=== PATIENT | female | born 1950 | race Caucasian/White ===

== ENCOUNTER → 2016-09-07 | Outpatient (CLI) | payer MEDICARE, OTHER ==
--- NOTE | 2016-09-07 10:08 | REPMRS ---
Patient History The patient states she had a clinical breast exam in 2015. Patient is postmenopausal and has history of other cancer at age 56. Family history of unknown cancer in father at age 88. Benign excisional biopsy of the right breast, 1994. Took hormonal contraceptives for 3 years. Digital Mammo Screening Bilat: September 07, 2016 - Exam #: [id number] Bilateral CC and MLO view(s) were taken. Technologist: Anne Benavidez, Technologist Prior study comparison: July 29, 2015, bilateral digital mammo screening bilat performed at [facility]. July 24, 2014, bilateral bilat screen digital mammo, performed at [facility] ([facility] FINDINGS: There are scattered fibroglandular densities. There has been no change in the appearance of the mammogram from the prior studies. There is a mild amount of residual fibroglandular tissue which is fairly symmetric. There is no interval development of dominant mass, architectural distortion, or clustered microcalcification suggestive of malignancy. ASSESSMENT: BI-RADS/ACR category 1 mammogram. Negative. Recommendation Routine screening mammogram in 1 year (for women over age 40). This mammogram was interpreted with the aid of an FDA-approved computer-aided dectection system. Electronically Signed By: Redd Perez MD 09/07/16 [id number]
== END | disposition home or self-care (01) ==
LOC: M RAD 09:30
PROVIDERS: ATTEND Nurse Practitioner Family
DX: Z12.31 Encounter for screening mammogram for malignant neoplasm of breast (principal); Z78.0 Asymptomatic menopausal state; Z92.0 Personal history of contraception; Z80.9 Family history of malignant neoplasm, unspecified; Z85.9 Personal history of malignant neoplasm, unspecified

== ENCOUNTER → 2016-12-23 | Outpatient (CLI) | payer MEDICARE, OTHER ==
[~2016-12-23] VITALS: Ht 160 cm; Wt 56.7 kg
[~2016-12-23] MED LIST: ADVI200C5 PO; GLYCOPYRROLATE INJ 0.2 MG/ML 2 ML VIAL As Ordered ONE; MULT1TAB10 PO; NS 1,000 ML IV ONE; OMEP40CA2 PO; PROPOFOL 200 MG/20 ML VIAL As Ordered ONE; VITA100037 PO; VITATAB11 PO; tumeric PO
--- NOTE | 2016-12-23 11:12 | ROOR ---
Patient Name: Nani Bello Procedure Date: 12/23/2016 10:51 AM Date of : 1950 Age: 66 Room: [facility] Gender: Female Note Status: Finalized Procedure: Colonoscopy Indications: Screening for colorectal malignant neoplasm Providers: Oscar AVILA MD Referring MD: JACK ESCOBAR NP Requesting Provider: Medicines: Monitored Anesthesia Care Complications: No immediate complications. Procedure: Pre-Anesthesia Assessment: - The heart rate, respiratory rate, oxygen saturations, blood pressure, adequacy of pulmonary ventilation, and response to care were monitored throughout the procedure. The Colonoscope was introduced through the anus and advanced to the cecum, identified by appendiceal orifice and ileocecal valve. The colonoscopy was performed without difficulty. The patient tolerated the procedure well. The quality of the bowel preparation was good. Findings: The perianal and digital rectal examinations were normal. A 6 mm polyp was found in the ascending colon. The polyp was sessile. The polyp was removed with a cold snare. Resection and retrieval were complete. A 4 mm polyp was found in the sigmoid colon. The polyp was sessile. The polyp was removed with a cold snare. Resection and retrieval were complete. Small Internal Hemorrhoids. The exam was otherwise without abnormality on direct and retroflexion views. Impression: - One 6 mm polyp in the ascending colon, removed with a cold snare. Resected and retrieved. - One 4 mm polyp in the sigmoid colon, removed with a cold snare. Resected and retrieved. - Small Internal Hemorrhoids. - The examination was otherwise normal on direct and retroflexion views. Recommendation: - Repeat colonoscopy in 3 years for surveillance. Oscar Avila MD Oscar AVILA MD 12/23/2016 11:12:13 AM This report has been signed electronically. Number of Addenda: 0 Note Initiated On: 12/23/2016 10:51 AM Estimated Blood Loss: Estimated blood loss: none.
[2016-12-23 11:35] VITALS: BP 124/75
== END | disposition home or self-care (01) ==
LOC: M OPP 09:48
PROVIDERS: ATTEND Internal Medicine Gastroenterology
DX: Z12.11 Encounter for screening for malignant neoplasm of colon (principal); D12.2 Benign neoplasm of ascending colon; D12.5 Benign neoplasm of sigmoid colon; K64.8 Other hemorrhoids; I34.1 Nonrheumatic mitral (valve) prolapse; R12 Heartburn; M19.90 Unspecified osteoarthritis, unspecified site; M54.9 Dorsalgia, unspecified; R42 Dizziness and giddiness; Z92.3 Personal history of irradiation; Z85.820 Personal history of malignant melanoma of skin; Z79.899 Other long term (current) drug therapy; Z80.52 Family history of malignant neoplasm of bladder

== ENCOUNTER → 2017-09-30 | Outpatient (REF) | payer MEDICARE, OTHER ==
[2017-10-03 12:54] LABS: LIPASE 116 U/L (73-393)
[2017-10-03 12:54] LABS: AMYLASE 57 U/L (25-115)
== END ==
LOC: M LAB REF 10-03 11:58
DX: R10.12 Left upper quadrant pain (principal)
CPT/HCPCS: 82150

== ENCOUNTER → 2020-02-11 | Outpatient (CLI) | payer MEDICARE, OTHER ==
[~2020-02-11] MED LIST changes: +CALCTAB38 PO; +CREO3600 PO; +CVS10CAP7 PO; +D 1010004 PO; +DSS100CA PO; +GASTROGRAFIN SOLUTION 30ML (Q9963) As Ordered ONE; -GLYCOPYRROLATE INJ 0.2 MG/ML 2 ML VIAL As Ordered ONE; +IBUP200C25 PO; +ISOVUE-370 76% 100ML VIAL As Ordered ONE; +MULTCAP PO; -NS 1,000 ML IV ONE; -OMEP40CA2 PO; +OMEP40CA97 PO; +PANT40TA29 PO; -PROPOFOL 200 MG/20 ML VIAL As Ordered ONE; +RA B1TAB7 PO; +TRAZ1TAB10 PO; -VITA100037 PO; +VITA100067 PO; +VITA200012 PO
--- NOTE | 2020-02-11 14:03 | REP ---
Clinical: Abdominal pain. Technique: Axial contrast enhanced images from the lung bases to the pubic symphysis using oral (per protocol) and 100 ml Isovue 370 intravenous contrast material with coronal and sagittal re-formations. Delayed images of the abdomen obtained. Findings: Liver, gallbladder, residual pancreatic head/uncinate process, bilateral adrenal glands and kidneys appear normal. The enteric system is without obstruction or obvious acute inflammatory process. Moderate fecal stasis throughout the colon is appreciated and should be correlated clinically. Pelvis demonstrates normal bladder and evidence of prior hysterectomy. No ascites. No free air. No definite adenopathy. Abdominal aorta without aneurysm or dissection. Musculoskeletal structures appear intact and without acute osseous abnormality. Chronic L5 spondylolysis without spondylolisthesis noted. There is a 13 mm spiculated lesion and 7 mm nodule at the right lung base. Impression: 1. Moderate fecal stasis. 2. 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 3. Two lesions at the right lung base suspicious for possible metastatic disease. Electronically Signed by Carlos Cuellar MD 02/11/2020 01:55 P
--- NOTE | 2020-02-11 14:09 | REP ---
Clinical: Pain. Technique: Axial contrast enhanced images from the thoracic inlet to the upper abdomen (followed by CT of the abdomen and pelvis) with coronal and sagittal re-formations using 100 ml Isovue 370 intravenous contrast material. [place]: None. Findings: Multiple rounded mass lesions with spiculated margins are identified bilaterally measuring up to 10 mm in the left upper lobe and 13 mm in the right lower lobe which are most suspicious for metastatic disease. No consolidation. No effusion. No pneumothorax. Tracheobronchial tree is patent. No obvious adenopathy. Mediastinum demonstrates normal thoracic aorta, pulmonary vasculature, and heart/pericardium. Surrounding musculoskeletal structures are intact. [id number] identified with tip in the SVC. Impression: Scattered pulmonary lesions compatible with metastatic disease. No prior examination available for comparison. Electronically Signed by Carlos Cuellar MD 02/11/2020 02:01 P
== END ==
LOC: M RAD 11:11
PROVIDERS: ATTEND Internal Medicine Medical Oncology
DX: C25.9 Malignant neoplasm of pancreas, unspecified (principal)
CPT/HCPCS: 71260; 74177; J1642; Q9963; Q9967

== ENCOUNTER → 2021-03-26 | Outpatient (REF) | payer MEDICARE, OTHER ==
[~2021-03-26] MED LIST changes: +ACET-897 PO; +DEXA1TA PO; +ELIQ5TAB PO; +ENOX40IN3 SQ; -GASTROGRAFIN SOLUTION 30ML (Q9963) As Ordered ONE; -ISOVUE-370 76% 100ML VIAL As Ordered ONE; +LOMO2.5T PO; +MIRT-60 PO; +MORP15TA2 PO; +MORP1TAB21 PO; +OMEP40CA4 PO; -OMEP40CA97 PO; +TRAZ-186 PO
[2021-03-26 17:16] LABS: BASO % 0.5 % (0.0-1.0); EOS # 0.1 10^3/uL (0.0-0.5); HEMATOCRIT 32.3 % (36.0-47.0); HEMOGLOBIN 10.5 g/dl (12.0-15.5); LYMPH # 1.2 10^3/uL (1.5-5.0); LYMPH % 19.3 % (24.0-44.0); MEAN CORPUSCULAR HGB CONC 32.5 g/dl (32.0-36.5); MEAN CORPUSCULAR VOLUME 104.5 fl (80.0-96.0); MONO # 0.5 10^3/uL (0.0-0.8); MONO % 8.4 % (2.0-8.0); NEUTROPHILS # 4.3 10^3/uL (1.5-8.5); NEUTROPHILS % 70.3 % (36.0-66.0); PLATELET COUNT, AUTOMATED 273 10^3/uL (150-450); RED BLOOD COUNT 3.09 10^6/uL (4.00-5.40); WHITE BLOOD COUNT 6.1 10^3/uL (4.0-10.0)
[2021-03-26 17:17] LABS: ALBUMIN 3.1 GM/DL (3.2-5.2); ALT/SGPT 23 U/L (12-78); BILIRUBIN,TOTAL 0.3 MG/DL (0.2-1.0); BLOOD UREA NITROGEN 16 MG/DL (7-18); CALCIUM LEVEL 8.7 MG/DL (8.8-10.2); CARBON DIOXIDE LEVEL 26 MEQ/L (21-32); CHLORIDE LEVEL 106 MEQ/L (98-107); GLOMERULAR FILTRATION RATE > 60.0 (>45); GLUCOSE, FASTING 160 MG/DL (70-100); HEMOGLOBIN A1c 5.9 %; POTASSIUM SERUM 3.8 MEQ/L (3.5-5.1); SODIUM LEVEL 136 MEQ/L (136-145); TOTAL PROTEIN 7.2 GM/DL (6.4-8.2)
== END ==
LOC: M LAB REF 16:20
PROVIDERS: ATTEND Physician Assistant Medical
DX: D64.9 Anemia, unspecified (principal); C25.3 Malignant neoplasm of pancreatic duct

== ENCOUNTER 2021-04-13 17:18 | Inpatient (IN) | payer MEDICARE, OTHER ==
[~2021-04-13] VITALS: Ht 162.6 cm; Wt 41.3 kg
[~2021-04-13 17:18] MED LIST changes: -ACET-897 PO; -DEXA1TA PO; -ELIQ5TAB PO; -ENOX40IN3 SQ; -LOMO2.5T PO; -MIRT-60 PO; -MORP15TA2 PO; -MORP1TAB21 PO; -TRAZ-186 PO
[2021-04-13] MEDS ORDERED: MORPHINE 4 MG/ML 1ML VIAL/SYRINGE (J2270) IV ONE (22:10)
[2021-04-13] MEDS ORDERED: NS 1,000 ML IV ONE (22:10)
[2021-04-13 22:42] LABS: BASO % 0.4 % (0.0-1.0); EOS % 0.1 % (0.0-3.0); HEMATOCRIT 32.2 % (36.0-47.0); HEMOGLOBIN 10.5 g/dl (12.0-15.5); LYMPH # 1.4 10^3/uL (1.5-5.0); LYMPH % 20.3 % (24.0-44.0); MEAN CORPUSCULAR HEMOGLOBIN 33.7 pg (27.0-33.0); MEAN CORPUSCULAR HGB CONC 32.6 g/dl (32.0-36.5); MEAN CORPUSCULAR VOLUME 103.2 fl (80.0-96.0); MONO # 0.6 10^3/uL (0.0-0.8); MONO % 8.7 % (2.0-8.0); NEUTROPHILS # 4.7 10^3/uL (1.5-8.5); NEUTROPHILS % 70.4 % (36.0-66.0); PLATELET COUNT, AUTOMATED 226 10^3/uL (150-450); RED BLOOD COUNT 3.12 10^6/uL (4.00-5.40); WHITE BLOOD COUNT 6.7 10^3/uL (4.0-10.0)
[2021-04-13 22:53] LABS: INR 1.05; PARTIAL THROMBOPLASTIN TIME 27.8 SECONDS (25.9-37.0); PROTHROMBIN TIME 14.1 SECONDS (12.7-14.5)
[2021-04-13 23:18] LABS: ALBUMIN 3.2 GM/DL (3.2-5.2); ALT/SGPT 17 U/L (12-78); BILIRUBIN,DIRECT 0.1 MG/DL (0.0-0.2); BILIRUBIN,TOTAL 0.3 MG/DL (0.2-1.0); BLOOD UREA NITROGEN 19 MG/DL (7-18); CALCIUM LEVEL 8.8 MG/DL (8.8-10.2); CARBON DIOXIDE LEVEL 27 MEQ/L (21-32); CHLORIDE LEVEL 106 MEQ/L (98-107); CK-MB VALUE MASS < 1.0 NG/ML (<3.6); CPK CREATINE PHOSPHOKINASE 58 U/L (26-192); CREATININE FOR GFR 0.87 MG/DL (0.55-1.30); GLOMERULAR FILTRATION RATE > 60.0 (>39); GLUCOSE, FASTING 116 MG/DL (70-100); MB/CK RELATIVE INDEX 1.72 (< OR =4); NT-PRO BNP 121 PG/ML (<125); POTASSIUM SERUM 3.9 MEQ/L (3.5-5.1); SODIUM LEVEL 139 MEQ/L (136-145); TROPONIN I < 0.02 NG/ML (< 0.10)
[2021-04-13] MEDS ORDERED: ISOVUE-370 76% 100ML VIAL As Ordered ONE (23:20)
[2021-04-13] MEDS ORDERED: CREON-12 CAPSULE PO ONE (23:43)
[2021-04-13] MEDS ORDERED: CREON-24 CAPSULE PO ONE (23:43)
[2021-04-14] VITALS (10 sets, daily range): BP systolic 105–148; BP diastolic 56–74
[2021-04-14] MEDS ORDERED: HYDROMORPHONE HCL 0.5 MG/ 0.5 ML SYRINGE (J1170 PER 1) IV PRN (00:35)
[2021-04-14 00:43] LABS: RSV AMPLIFICATION NEGATIVE (NEGATIVE)
--- NOTE | 2021-04-14 00:47 | REPVR ---
PROCEDURE INFORMATION: Exam: CTA Chest With Contrast Exam date and time: 04/13/2021 10:07 PM Age: 71 years old Clinical indication: Pain; Shortness of breath; Other: General; Additional info: Extensive dvt/sob TECHNIQUE: Imaging protocol: Computed tomographic angiography of the chest with contrast. 3D rendering (Not supervised by radiologist): MIP and/or 3D reconstructed images were created by the technologist. Radiation optimization: All CT scans at this facility use at least one of these dose optimization techniques: automated exposure control; mA and/or kV adjustment per patient size (includes targeted exams where dose is matched to clinical indication); or iterative reconstruction. Contrast material: ISO; Contrast volume: 75 ml; Contrast route: INTRAVENOUS (IV); COMPARISON: CT Chest with contrast 02/11/2020 1:30 PM. Prior report has not been made available for review at the time of this emergent interpretation, however was requested. FINDINGS: PULMONARY ARTERIES: Diameter of the main pulmonary trunk at 2.4 cm is within normal range. There are intraluminal pulmonary arterial filling defects within right upper lobe segmental and subsegmental pulmonary arterial branches, right middle lobe segmental and subsegmental pulmonary arterial branches, right lower lobe segmental and subsegmental pulmonary arterial branches, posterior lingular segmental and subsegmental branches and involvement of the posteromedial segmental and subsegmental branches of the left lower lobe. These findings are consistent with acute pulmonary emboli. There is non visualization of the right lower lobe superior segmental pulmonary arterial from its origin which may be secondary to postsurgical change, pulmonary embolus or extrinsic compression related to malignancy/mass. HEART AND AORTA: Cardiac size is not enlarged. No tricuspid regurgitation into the IVC is seen. Ventricular ratios are maintained. No deviation of the interventricular septum is seen. Evaluation of the aortic root and ascending thoracic aorta is slightly compromised by cardiac motion artifact. No thoracic aortic aneurysm or dissection is seen otherwise. Visualized proximal great vessels within the superior mediastinum are preserved. No visualized upper abdominoaortic aneurysm or dissection is seen. There is retroperitoneal para-aortic soft tissue mass which results in slight luminal irregularity and narrowing of the visualized celiac axis, superior mesenteric artery and visualized left renal artery. MEDIASTINUM: No mediastinal soft tissue gas. No midline shift of structures seen. The visualized trachea is homogeneous. No mediastinal hematoma. Small amount of fluid noted within the pericardial recesses. There is a paratracheal lymph node measuring 6.1 mm in short axis. This is larger than on the prior study but not obviously pathologic. There is an AP window lymph node measuring 10 mm in short axis. This is newly enlarged compared to the prior exam. There is a 10 mm short axis azygoesophageal recess lymph node which is new compared to the prior exam. There is mild right hilar lymphadenopathy with nodes up to 12 mm in short axis. This is new compared to the prior exam. Malignancy cannot be excluded. No hiatal hernia. Mild esophageal wall thickening cannot be excluded on this study. Clinical correlation with any esophageal symptoms. LUNGS: There are innumerable pulmonary emboli seen throughout the lungs bilaterally much worse than on the prior study. Pulmonary nodules appear to have spiculated margins; the largest nodular opacity measuring 2.7 cm in diameter within the right lower lobe and there is also a focal masslike opacity measuring 3.7 x 3 cm within the right lower lobe. A calcific suture line is visible within the right lung. Correlation with past medical history and surgical history is advised. No pneumothorax. Small pleural effusions bilaterally, left slightly greater than right. Bilateral mild interstitial thickening noted. Lymphatic congestion and lymphatic malignancy are possibilities. UPPER ABDOMEN: No free intraperitoneal air is seen within the upper most abdomen. There is scattered free fluid noted. There is elevated mesenteric and omental attenuation which may be secondary to edema, inflammation and or lymph nodes. There is retroperitoneal lobular soft tissue mass measuring 6.4 cm in diameter around the aorta and proximal visceral branches as discussed above. Vascular involvement cannot be excluded. There is hypoenhancement of the visualized left kidney, compared to the right. The significance of this is uncertain. This may be secondary to slight compromise of the left renal artery, other causes of ischemia or dysfunction, however incompletely assessed. Visualized bowel loops within the upper abdomen appear thick walled, slightly indistinct and with suboptimal enhancement. This could be artifactual secondary to lack of distention and early arterial phase of imaging, however gastroenteritis or early ischemic bowel cannot be excluded. Clinical correlation is advised. MSK AND BODY WALL: Right chest wall chest port is noted, the tip of the catheter at the level of the distal SVC. Degenerative changes of the spine and bony thorax are noted. IMPRESSION: There are pulmonary emboli involving some segmental and subsegmental branches of all pulmonary lobes bilaterally. No imaging evidence of right heart strain is seen at the current time. There are innumerable pulmonary nodules and pulmonary parenchymal masses which are greater and enlarged compared to the prior study, worrisome for worsening metastatic disease. Lymphangitic involvement may also be a possibility. There is new mediastinal and hilar lymph node enlargement, likely secondary to malignant involvement. Incompletely imaged para-aortic retroperitoneal mass is much larger than on the prior study with surrounding of some visceral branches with irregularity of luminal flow suggesting early vascular involvement and or partial vascular compromise. There is hypoenhancement of the left kidney which may be secondary to vascular compromise as discussed above. There is suboptimal enhancement of visualized bowel loops which could be artifactual but early ischemic change cannot be excluded. Other findings discussed above in detail. THIS REPORT CONTAINS FINDINGS THAT MAY BE CRITICAL TO PATIENT CARE. The findings were verbally communicated via telephone conference with TAY CARRASQUILLO at 12:41 AM EDT on 04/14/2021. The findings were acknowledged and understood. Electronically signed by: Zeus Estes On 04/14/2021 00:47:01 AM
[2021-04-14] MEDS ORDERED: HEPARIN SOD (PORCINE) 5000UNITS/ML 1ML VIAL/SYRINGE IV ONE (01:45)
[2021-04-14] MEDS ORDERED: HEPARIN DRIP 25,000 UNITS in IV 1 EA IV SCH (01:45)
[2021-04-14] MEDS ORDERED: HYDROmorphone HCL 2 MG/ML 1ML VIAL IV PRN ×2 (01:45)
[2021-04-14] MEDS ORDERED: HEPARIN SOD (PORCINE) 5000UNITS/ML 1ML VIAL/SYRINGE IV PRN (01:45)
--- NOTE | 2021-04-14 01:48 | HPEPDOC ---
[facility] Medical History & Physical Date of Admission Apr 14, 2021 Date of Service: Apr 14, 2021 Attending Physician: BRENDAN GARCES MD History and Physical CHIEF COMPLAINT: [lower extremity swelling] HISTORY OF PRESENT ILLNESS: [This is a 71 y/o female with a pmh of pancreatic cancer with metastasis to lung and local and distant lymph nodes s/p several rounds of chemo and radiation as well as partial pancreatectomy who presents to our ED on 04/13 with cc of rle swelling that began about 1 week ago. Patient states that when she first noticed the swelling, she did not think that much of it as it did not really bother her. Patient states that she simply watched it, however on tuesday 04/10 she noticed it start to become markedly worse. Patient states that she presented to her pcp on 04/13 for evaluation of the swelling, who then ordered an ultrasound which found a large dvt. Patient states that she was surprised as she has no pain in her leg, rather it is simply swollen. Patient states that she has been traveling lately between [facility] and [place] lately and states that she will often spend many days resting d/t her extreme pain 2/2 her cancer. Patient states that she is currently in extreme pain, but it is in her back and abdomen, and that this is chronic for her. Patient admits to occasional sob. Patient states, at the time of my exam, that otherwise she feels fine and denies chest pain, cough, hemoptysis, n/v/d/c, fevers, chills, syncope, paresthesias. Patient found to have large right leg dvt as well as multiple small pulmonary embolisms without evidence of heart strain.] PAST MEDICAL HISTORY: 1. [See HPI PAST SURGICAL HISTORY: 1. [Partial pancreatectomy SOCIAL HISTORY: Tobacco use:[Denies] ETOH: [Denies] Illicit drug use: [Denies] FAMILY HISTORY: Reviewed - none pertinent ALLERGIES: Please see below. REVIEW OF SYSTEMS: CONSTITUTIONAL: [Denies fevers, chills]. HEENT: [Denies uri sx]. CARDIOVASCULAR: [Denies chest pain, palpitations]. RESPIRATORY: [Admits to occasional episodes of sob. Denies cough, wheezing]. GASTROINTESTINAL: [Admits to chronic abd pain. Denies n/v]. GENITOURINARY: [Denies dysuria]. SKIN: [Denies rash]. MUSCULOSKELETAL: [Admits to chronic back pain. Denies acute joint pain]. NEUROLOGICAL: [Denies syncope, paresthesias]. ENDOCRINE: [Hx of pancreatic insufficiency]. HEMATOLOGIC/LYMPHATIC: [Current dvt + pe]. HOME MEDICATIONS: Please see below. PHYSICAL EXAMINATION: VITAL SIGNS: Please see below. GENERAL APPEARANCE: [This is an underweight 71 y/o female who is pleasant and alert and oriented to all questioning. She is obviously uncomfortable and frequently shifting in bed but in no respiratory distress]. HEENT: [No mass or lesion. EOMI. No scleral icterus. Nares patent. Oral mucosa moist]. CARDIOVASCULAR: [Tachy rate, regular rhythm. No murmurs, rubs, gallops]. LUNGS: [Good air flow b/l. No wheezing, rales, rhonchi]. ABDOMEN: [Soft, tender throughout]. MUSCULOSKELETAL: [No joint deformity noted]. EXTREMITIES: [Right lower extremity grossly edematous however nontender. Right leg is about twice the size of the left. Pulses in the right leg are unobtainable by myself, however patient retains feeling in the foot and has no signs of limb ischemia. No overlying skin changes]. NEUROLOGICAL: [Speech clear. A+Ox3. Patient moves all fours freely during exam. No focal deficits]. PSYCHIATRIC: [Mood and affect appear appropriate]. LABORATORY DATA: See below. IMAGING: [CTA Chest: FINDINGS: PULMONARY ARTERIES: Diameter of the main pulmonary trunk at 2.4 cm is within normal range. There are intraluminal pulmonary arterial filling defects within right upper lobe segmental and subsegmental pulmonary arterial branches, right middle lobe segmental and subsegmental pulmonary arterial branches, right lower lobe segmental and subsegmental pulmonary arterial branches, posterior lingular segmental and subsegmental branches and involvement of the posteromedial segmental and subsegmental branches of the left lower lobe. These findings are consistent with acute pulmonary emboli. There is non visualization of the right lower lobe superior segmental pulmonary arterial from its origin which may be secondary to postsurgical change, pulmonary embolus or extrinsic compression related to malignancy/mass. HEART AND AORTA: Cardiac size is not enlarged. No tricuspid regurgitation into the IVC is seen. Ventricular ratios are maintained. No deviation of the interventricular septum is seen. Evaluation of the aortic root and ascending thoracic aorta is slightly compromised by cardiac motion artifact. No thoracic aortic aneurysm or dissection is seen otherwise. Visualized proximal great vessels within the superior mediastinum are preserved. No visualized upper abdominoaortic aneurysm or dissection is seen. There is retroperitoneal para-aortic soft tissue mass which results in slight luminal irregularity and narrowing of the visualized celiac axis, superior mesenteric artery and visualized left renal artery. MEDIASTINUM: No mediastinal soft tissue gas. No midline shift of structures seen. The visualized trachea is homogeneous. No mediastinal hematoma. Small amount of fluid noted within the pericardial recesses. There is a paratracheal lymph node measuring 6.1 mm in short axis. This is larger than on the prior study but not obviously pathologic. There is an AP window lymph node measuring 10 mm in short axis. This is newly enlarged compared to the prior exam. There is a 10 mm short axis azygoesophageal recess lymph node which is new compared to the prior exam. There is mild right hilar lymphadenopathy with nodes up to 12 mm in short axis. This is new compared to the prior exam. Malignancy cannot be excluded. No hiatal hernia. Mild esophageal wall thickening cannot be excluded on this study. Clinical correlation with any esophageal symptoms. LUNGS: There are innumerable pulmonary emboli seen throughout the lungs bilaterally much worse than on the prior study. Pulmonary nodules appear to have spiculated margins; the largest nodular opacity measuring 2.7 cm in diameter within the right lower lobe and there is also a focal masslike opacity measuring 3.7 x 3 cm within the right lower lobe. A calcific suture line is visible within the right lung. Correlation with past medical history and surgical history is advised. No pneumothorax. Small pleural effusions bilaterally, left slightly greater than right. Bilateral mild interstitial thickening noted. Lymphatic congestion and lymphatic malignancy are possibilities. UPPER ABDOMEN: No free intraperitoneal air is seen within the upper most abdomen. There is scattered free fluid noted. There is elevated mesenteric and omental attenuation which may be secondary to edema, inflammation and or lymph nodes. There is retroperitoneal lobular soft tissue mass measuring 6.4 cm in diameter around the aorta and proximal visceral branches as discussed above. Vascular involvement cannot be excluded. There is hypoenhancement of the visualized left kidney, compared to the right. The significance of this is uncertain. This may be secondary to slight compromise of the left renal artery, other causes of ischemia or dysfunction, however incompletely assessed. Visualized bowel loops within the upper abdomen appear thick walled, slightly indistinct and with suboptimal enhancement. This could be artifactual secondary to lack of distention and early arterial phase of imaging, however gastroenteritis or early ischemic bowel cannot be excluded. Clinical correlation is advised. MSK AND BODY WALL: Right chest wall chest port is noted, the tip of the catheter at the level of the distal SVC. Degenerative changes of the spine and bony thorax are noted. IMPRESSION: There are pulmonary emboli involving some segmental and subsegmental branches of all pulmonary lobes bilaterally. No imaging evidence of right heart strain is seen at the current time. There are innumerable pulmonary nodules and pulmonary parenchymal masses which are greater and enlarged compared to the prior study, worrisome for worsening metastatic disease. Lymphangitic involvement may also be a possibility. There is new mediastinal and hilar lymph node enlargement, likely secondary to malignant involvement. Incompletely imaged para-aortic retroperitoneal mass is much larger than on the prior study with surrounding of some visceral branches with irregularity of luminal flow suggesting early vascular involvement and or partial vascular compromise. There is hypoenhancement of the left kidney which may be secondary to vascular compromise as discussed above. There is suboptimal enhancement of visualized bowel loops which could be artifactual but early ischemic change cannot be excluded. Other findings discussed above in detail. ] MICROBIOLOGY: Please see below. ASSESSMENT: [This is a 71 y/o female with a pmh of pancreatic cancer with metastasis to lung and local and distant lymph nodes s/p several rounds of chemo and radiation as well as partial pancreatectomy who presents to our ED on 04/13 with cc of rle swelling that began about 1 week ago. Patient found to have large rle dvt as well as multiple small pulmonary embolism]. . PLAN: 1. [RLE DVT + multiple pulmonary embolisms - 2/2 metastatic dz - patient not experiencing any rle pain, which is surprising for size of clot - patient not also not having any hypoxia, right heart strain from her pulmonary embolisms - ED provider has consulted Dr. Gentile, vascular surgery, who has agreed to see patient and evaluate need for thrombolysis of rle clot. Assistance and recommendations are greatly appreciated. - Will begin heparin drip - Baseline aptt has been obtained, will trend aptt every 6 hours until appropriate rate of drip has been achieved - will monitor for any signs fo bleeding - daily cbc - admit to pcu for tx 2. Metastatic pancreatic cancer - patient has multiple metastatic findings on ct angio performed in the ED. Patient tells me that she was aware of pulmonary metastasis, but not of abdominal metastasis which appears to be new. Patient follows with oncologist at [place] in [place], however she tells me that her oncologist told her that there is no further treatment that can help her clinically. - Patient has chronic severe pain, will give pain control with prn dilaudid while inpatient. Will continue chronic scheduled dose of morphine. - will give bowel regimen - continue pancreatic enzymes 3. Insomnia - continue trazodone, remeron 4. GERD - continue protonix DVT prophylaxis - heparin drip Code status: Had discussion with patient regarding code status as she has a very poor prognosis with her metastatic disease. Patient stated understanding that her cancer is terminal however states that she wants to be FULL CODE at this time. I explained that this would mean chest compression and intubation and patient stated understanding]. Vital Signs Vital Signs Date Time Temp Pulse Resp B/P (MAP) Pulse Ox O2 Delivery O2 Flow Rate FiO2 04/14/21 01:14 18 04/13/21 22:10 Room Air 04/13/21 17:19 98.1 83 146/74 (98) 96 Laboratory Data Labs 24H Laboratory Tests 2 04/13/21 22:07: Immature Granulocyte % (Auto) 0.1, Neutrophils (%) (Auto) 70.4H, Lymphocytes (%) (Auto) 20.3L, Monocytes (%) (Auto) 8.7H, Eosinophils (%) (Auto) 0.1, Basophils (%) (Auto) 0.4, Neutrophils # (Auto) 4.7, Lymphocytes # (Auto) 1.4L, Monocytes # (Auto) 0.6, Eosinophils # (Auto) 0.0, Basophils # (Auto) 0.0, Nucleated Red Blood Cells % (auto) 0.0, Prothrombin Time 14.1H, Prothromb Time International Ratio 1.05, Activated Partial Thromboplast Time 27.8 04/13/21 22:17: Anion Gap 6L, Glomerular Filtration Rate > 60.0, Calcium Level 8.8, Total Bilirubin 0.3, Direct Bilirubin 0.1, Aspartate Amino Transf (AST/SGOT) 19, Alanine Aminotransferase (ALT/SGPT) 17, Alkaline Phosphatase 119H, Total Creatine Kinase 58, Creatine Kinase MB < 1.0, Creatine Kinase MB Relative Index 1.72, Troponin I < 0.02, EI-Cmb-I-Type Natriuretic Peptide 121, Total Protein 7.0, Albumin 3.2, Albumin/Globulin Ratio 0.8L 04/13/21 23:51: Coronavirus (COVID-19)(PCR) NEGATIVE, Influenza Type A (RT-PCR) NEGATIVE, Influenza Type B (RT-PCR) NEGATIVE, Respiratory Syncytial Virus (PCR) NEGATIVE CBC/BMP Laboratory Tests 04/13/21 22:07 04/13/21 22:17 Home Medications Scheduled Dexamethasone (Dexamethasone) 1 Mg Tablet, 1 MG PO DAILY Lipase/Protease/Amylase (Creon Dr 36,000 Units Capsule) 1 Each Capsule.dr, 2 CAP PO WM Lipase/Protease/Amylase (Creon Dr 36,000 Units Capsule) 1 Each Capsule.dr, 1 CAP PO ASDIRECTED WITH SNACKS Mirtazapine (Remeron) 30 Mg Tablet, 30 MG PO QHS Morphine Sulfate (Morphine Sulfate Cr) 60 Mg Tablet.er, 60 MG PO BID Trazodone HCl (Trazodone HCl) 50 Mg Tablet, 50 MG PO QHS Scheduled PRN Acetaminophen (Tylenol Extra Strength) 500 Mg Tablet, 500 MG PO Q4H PRN for MILD PAIN (PS 1-4) Diphenoxylate HCl/Atropine (Lomotil 2.5-0.025 mg Tablet) 1 Each Tablet, 1 TAB PO QID PRN for DIARRHEA Morphine Sulfate (Morphine Sulfate) 15 Mg Tablet, 15 MG PO Q4H PRN for MODERATE PAIN (PS 5-7) Morphine Sulfate (Morphine Sulfate) 15 Mg Tablet, 30 MG PO Q4H PRN for SEVERE PAIN (PS 8-10) Pantoprazole Sodium (Pantoprazole Sodium) 40 Mg Tablet.dr, 40 MG PO BID PRN for ACID REFLUX Allergies Coded Allergies: No Known Allergies (Unverified , 12/21/16) A-FIB/CHADSVASC A-FIB History Current/History of A-Fib/PAF?: No EFFIE FISHER Apr 14, 2021 01:48 BRENDAN GARCES MD Apr 14, 2021 07:06
[2021-04-14] MEDS ORDERED: MIRALAX *UNIT DOSE* 17GM PACKET PO PRN (01:50)
[2021-04-14] MEDS ORDERED: MOM 30ML SUSPENSION UDC PO PRN (01:50)
[2021-04-14] MEDS ORDERED: ACET-897 PO (02:26)
[2021-04-14] MEDS ORDERED: MIRT-60 PO (02:26)
[2021-04-14] MEDS ORDERED: LOMO2.5T PO (02:26)
[2021-04-14] MEDS ORDERED: MORP1TAB21 PO (02:26)
[2021-04-14] MEDS ORDERED: DEXA1TA PO (02:26)
[2021-04-14] MEDS ORDERED: MORP15TA2 PO (02:26)
[2021-04-14] MEDS ORDERED: CREO3600 PO ×2 (02:26)
[2021-04-14] MEDS ORDERED: TRAZ-186 PO (02:26)
[2021-04-14] MEDS ORDERED: HOME MED LIST COMPLETE! XX SCH (02:30)
[2021-04-14] MEDS ORDERED: LOMOTIL 2.5MG/0.025MG TABLET PO PRN (02:35)
[2021-04-14] MEDS ORDERED: PANTOPRAZOLE 40MG TAB (PROTONIX) PO PRN (02:35)
[2021-04-14] MEDS ORDERED: CREON-12 CAPSULE PO PRN (02:35)
[2021-04-14] MEDS: CREON-24 CAPSULE PO SCH ×3 (07:59→18:15)
[2021-04-14] MEDS ORDERED: CREON-24 CAPSULE PO SCH (08:00)
[2021-04-14] MEDS: DOCUSATE SODIUM 100MG CAPSULE PO SCH ×2 (09:00→20:56)
[2021-04-14] MEDS ORDERED: FLUBLOK(EGG FREE)(QUAD)INFLUENZA VACC 0.5ML SYRINGE 18YRS & OLDER IM ONE (09:00)
[2021-04-14] MEDS: MORPHINE 30 MG SA TAB PO SCH ×2 (09:41→21:30)
[2021-04-14 10:49] LABS: HEMATOCRIT 28.2 % (36.0-47.0); HEMOGLOBIN 9.5 g/dl (12.0-15.5); MEAN CORPUSCULAR HEMOGLOBIN 34.8 pg (27.0-33.0); MEAN CORPUSCULAR HGB CONC 33.7 g/dl (32.0-36.5); MEAN CORPUSCULAR VOLUME 103.3 fl (80.0-96.0); PLATELET COUNT, AUTOMATED 213 10^3/uL (150-450); RED BLOOD COUNT 2.73 10^6/uL (4.00-5.40); WHITE BLOOD COUNT 7.3 10^3/uL (4.0-10.0)
--- NOTE | 2021-04-14 11:36 | IPNPDOC ---
Text Note Date of Service The patient was seen on 04/14/21. NOTE SUBJECTIVE: -No acute events overnight OBJECTIVE: VITAL SIGNS: Please see below. GENERAL APPEARANCE: NAD, cachectic with muscle wasting HEENT: NCAT, EOMI, anicteric, MMM CARDIOVASCULAR:RRR. No murmurs, rubs, gallops LUNGS: CTAB ABDOMEN: soft, diffuse TTP EXTREMITIES: Right lower extremity grossly edematous however nontender, warm, pink, no mottling. NEUROLOGICAL: Speech clear. A+Ox3. Patient moves all four limbs freely LABORATORY DATA: Reviewed IMAGING: CTA Chest: FINDINGS: PULMONARY ARTERIES: Diameter of the main pulmonary trunk at 2.4 cm is within normal range. There are intraluminal pulmonary arterial filling defects within right upper lobe segmental and subsegmental pulmonary arterial branches, right middle lobe segmental and subsegmental pulmonary arterial branches, right lower lobe segmental and subsegmental pulmonary arterial branches, posterior lingular segmental and subsegmental branches and involvement of the posteromedial segmental and subsegmental branches of the left lower lobe. These findings are consistent with acute pulmonary emboli. There is non visualization of the right lower lobe superior segmental pulmonary arterial from its origin which may be secondary to postsurgical change, pulmonary embolus or extrinsic compression related to malignancy/mass. HEART AND AORTA: Cardiac size is not enlarged. No tricuspid regurgitation into the IVC is seen. Ventricular ratios are maintained. No deviation of the interventricular septum is seen. Evaluation of the aortic root and ascending thoracic aorta is slightly compromised by cardiac motion artifact. No thoracic aortic aneurysm or dissection is seen otherwise. Visualized proximal great vessels within the superior mediastinum are preserved. No visualized upper abdominoaortic aneurysm or dissection is seen. There is retroperitoneal para-aortic soft tissue mass which results in slight luminal irregularity and narrowing of the visualized celiac axis, superior mesenteric artery and visualized left renal artery. MEDIASTINUM: No mediastinal soft tissue gas. No midline shift of structures seen. The visualized trachea is homogeneous. No mediastinal hematoma. Small amount of fluid noted within the pericardial recesses. There is a paratracheal lymph node measuring 6.1 mm in short axis. This is larger than on the prior study but not obviously pathologic. There is an AP window lymph node measuring 10 mm in short axis. This is newly enlarged compared to the prior exam. There is a 10 mm short axis azygoesophageal recess lymph node which is new compared to the prior exam. There is mild right hilar lymphadenopathy with nodes up to 12 mm in short axis. This is new compared to the prior exam. Malignancy cannot be excluded. No hiatal hernia. Mild esophageal wall thickening cannot be excluded on this study. Clinical correlation with any esophageal symptoms. LUNGS: There are innumerable pulmonary emboli seen throughout the lungs bilaterally much worse than on the prior study. Pulmonary nodules appear to have spiculated margins; the largest nodular opacity measuring 2.7 cm in diameter within the right lower lobe and there is also a focal masslike opacity measuring 3.7 x 3 cm within the right lower lobe. A calcific suture line is visible within the right lung. Correlation with past medical history and surgical history is advised. No pneumothorax. Small pleural effusions bilaterally, left slightly greater than right. Bilateral mild interstitial thickening noted. Lymphatic congestion and lymphatic malignancy are possibilities. UPPER ABDOMEN: No free intraperitoneal air is seen within the upper most abdomen. There is scattered free fluid noted. There is elevated mesenteric and omental attenuation which may be secondary to edema, inflammation and or lymph nodes. There is retroperitoneal lobular soft tissue mass measuring 6.4 cm in diameter around the aorta and proximal visceral branches as discussed above. Vascular involvement cannot be excluded. There is hypoenhancement of the visualized left kidney, compared to the right. The significance of this is uncertain. This may be secondary to slight compromise of the left renal artery, other causes of ischemia or dysfunction, however incompletely assessed. Visualized bowel loops within the upper abdomen appear thick walled, slightly indistinct and with suboptimal enhancement. This could be artifactual secondary to lack of distention and early arterial phase of imaging, however gastroenteritis or early ischemic bowel cannot be excluded. Clinical correlation is advised. MSK AND BODY WALL: Right chest wall chest port is noted, the tip of the catheter at the level of the distal SVC. Degenerative changes of the spine and bony thorax are noted. IMPRESSION: There are pulmonary emboli involving some segmental and subsegmental branches of all pulmonary lobes bilaterally. No imaging evidence of right heart strain is seen at the current time. There are innumerable pulmonary nodules and pulmonary parenchymal masses which are greater and enlarged compared to the prior study, worrisome for worsening metastatic disease. Lymphangitic involvement may also be a possibility. There is new mediastinal and hilar lymph node enlargement, likely secondary to malignant involvement. Incompletely imaged para-aortic retroperitoneal mass is much larger than on the prior study with surrounding of some visceral branches with irregularity of luminal flow suggesting early vascular involvement and or partial vascular compromise. There is hypoenhancement of the left kidney which may be secondary to vascular compromise as discussed above. There is suboptimal enhancement of visualized bowel loops which could be artifactual but early ischemic change cannot be excluded. Other findings discussed above in detail. MICROBIOLOGY: Please see below. ASSESSMENT: 71 y/o W with pancreatic cancer with metastasis to lung and local and distant lymph nodes s/p several rounds of chemo and radiation as well as partial pancreatectomy who presented to our ED on 04/13 with cc of rle swelling that began about 1 week ago and admitted for large rle dvt as well as multiple segmental and subsegmental pulmonary embolisms. PLAN: RLE DVT + multiple pulmonary embolisms - 2/2 metastatic dz - patient not experiencing any rle pain - patient not also not having any hypoxia, or right heart strain from her pulmonary embolisms - ED provider has consulted Dr. Gentile, vascular surgery, who has agreed to see patient and evaluate, pending recs - On heparin drip, will transition to eliquis after vascular feedback -monitor for bleeding - daily cbc Metastatic pancreatic cancer - patient has multiple metastatic findings on ct angio performed in the ED. P atient tells me that she was aware of pulmonary metastasis, but not of abdominal metastasis which appears to be new. Patient follows with oncologist at [place] in [place], however she tells me that her oncologist told her that there is no further treatment that can help her clinically. - Patient has chronic severe pain, continue chronic scheduled dose of morphine and PRN dilaudid for severe persistent pain - continue bowel regimen - continue pancreatic enzymes Insomnia - continue trazodone, remeron GERD - continue protonix DVT prophylaxis - heparin drip Severe protein calorie malnutrition i/s/o metastatic pancreatic CA -BMI 16.5 -Dietary consult Code status: Had discussion with patient regarding code status as she has a very poor prognosis with her metastatic disease. Patient stated understanding that her cancer is terminal however states that she wants to be FULL CODE at this time. VS,Fishbone, I+O VS, Fishbone, I+O Laboratory Tests 04/13/21 22:07 04/13/21 22:17 Vital Signs Date Time Temp Pulse Resp B/P (MAP) Pulse Ox O2 Delivery O2 Flow Rate FiO2 04/14/21 09:41 81 20 130/59 95 Room Air 04/14/21 08:00 99.1 I&O- Last 24 Hours up to 6 AM 04/14/21 06:00 Intake Total 0 ml Balance 0 ml GENESIS DUTTON MD Apr 14, 2021 10:28
[2021-04-14] MEDS ORDERED: MORPHINE 30 MG TAB **MSIR PO PRN (12:50)
[2021-04-14] MEDS: ACETAMINOPHEN 500 MG TAB PO PRN ×2 (12:54→20:09)
--- NOTE | 2021-04-14 13:08 | CR.PDOC ---
General Date of Consultation: Apr 14, 2021 Consultation REASON FOR CONSULTATION/CHIEF COMPLAINT: Right leg DVT. HISTORY OF PRESENT ILLNESS: 71-year-old female admitted early this morning with 1 week history of right leg swelling. Patient has metastatic pancreatic cancer to lung and bones. Patient denies pain in the right leg, has neuropathy on plantar surface of right foot which is chronic, has not noticed any skin changes.. ALLERGIES: Please see below. HOME MEDICATIONS: Please see below. PAST MEDICAL HISTORY: See H&P PAST SURGICAL HISTORY: See H&P FAMILY HISTORY: See H&P SOCIAL HISTORY: See H&P REVIEW OF SYSTEMS: Grossly negative except as HPI and per H&P PHYSICAL EXAMINATION: VITAL SIGNS: Please see below. GENERAL APPEARANCE: No acute distress. HEENT: Normocephalic, atraumatic. RESPIRATORY: Clear to auscultation bilateral. CARDIOVASCULAR: S1 and S2, regular rate rhythm. ABDOMEN: Soft nondistended nontender. EXTREMITIES: Right leg with significant swelling and edema, foot warm, no skin color changes, good cap refill. NEUROLOGICAL: Grossly intact. PSYCHIATRIC: Cooperative. LABORATORY DATA: Please see below. ASSESSMENT/PLAN: 71-year-old female with extensive right lower extremity DVT (venous duplex study done at outside facility is not available online) and metastatic pancreatic cancer. Recommend heparin drip at this time and may transition to p.o. anticoagulation in 24 hours. Patient not a candidate for IVC filter at this time since she does not meet the criteria for it. Vital Signs/I&O Vital Signs Date Time Temp Pulse Resp B/P (MAP) Pulse Ox O2 Delivery O2 Flow Rate FiO2 04/14/21 11:37 99.0 97 18 120/74 (89) 98 Room Air I&O- Last 24 Hours up to 6 AM 04/14/21 05:59 Intake Total 0 ml Balance 0 ml Laboratory Data Labs 24H Laboratory Tests 2 04/13/21 22:07: Immature Granulocyte % (Auto) 0.1, Neutrophils (%) (Auto) 70.4H, Lymphocytes (%) (Auto) 20.3L, Monocytes (%) (Auto) 8.7H, Eosinophils (%) (Auto) 0.1, Basophils (%) (Auto) 0.4, Neutrophils # (Auto) 4.7, Lymphocytes # (Auto) 1.4L, Monocytes # (Auto) 0.6, Eosinophils # (Auto) 0.0, Basophils # (Auto) 0.0, Nucleated Red Blood Cells % (auto) 0.0, Prothrombin Time 14.1H, Prothromb Time International Ratio 1.05, Activated Partial Thromboplast Time 27.8 04/13/21 22:17: Anion Gap 6L, Glomerular Filtration Rate > 60.0, Calcium Level 8.8, Total Bilirubin 0.3, Direct Bilirubin 0.1, Aspartate Amino Transf (AST/SGOT) 19, Alanine Aminotransferase (ALT/SGPT) 17, Alkaline Phosphatase 119H, Total Creatine Kinase 58, Creatine Kinase MB < 1.0, Creatine Kinase MB Relative Index 1.72, Troponin I < 0.02, LG-Fdf-X-Type Natriuretic Peptide 121, Total Protein 7.0, Albumin 3.2, Albumin/Globulin Ratio 0.8L 04/13/21 23:51: Coronavirus (COVID-19)(PCR) NEGATIVE, Influenza Type A (RT-PCR) NEGATIVE, Influenza Type B (RT-PCR) NEGATIVE, Respiratory Syncytial Virus (PCR) NEGATIVE 04/14/21 09:41: Activated Partial Thromboplast Time 99.6H 04/14/21 10:32: Nucleated Red Blood Cells % (auto) 0.0 04/14/21 11:18: Lab Scanned Report Miscellaneous Lab CBC/BMP Laboratory Tests 04/13/21 22:07 04/13/21 22:17 04/14/21 10:32 Allergies Coded Allergies: No Known Allergies (Unverified , 12/21/16) Home Medications Scheduled Dexamethasone (Dexamethasone) 1 Mg Tablet, 1 MG PO DAILY, (Reported) Lipase/Protease/Amylase (Fabio Drake 36,000 Units Capsule) 1 Each Capsule.dr, 2 CAP PO WM, (Reported) Lipase/Protease/Amylase (Fabio Dr 36,000 Units Capsule) 1 Each Capsule.dr, 1 CAP PO ASDIRECTED, (Reported) WITH SNACKS Mirtazapine (Remeron) 30 Mg Tablet, 30 MG PO QHS, (Reported) Morphine Sulfate (Morphine Sulfate Cr) 60 Mg Tablet.er, 60 MG PO BID, (Reported) Trazodone HCl (Trazodone HCl) 50 Mg Tablet, 50 MG PO QHS, (Reported) Scheduled PRN Acetaminophen (Tylenol Extra Strength) 500 Mg Tablet, 500 MG PO Q4H PRN for MILD PAIN (PS 1-4), (Reported) Diphenoxylate HCl/Atropine (Lomotil 2.5-0.025 mg Tablet) 1 Each Tablet, 1 TAB PO QID PRN for DIARRHEA, (Reported) Morphine Sulfate (Morphine Sulfate) 15 Mg Tablet, 15 MG PO Q4H PRN for MODERATE PAIN (PS 5-7), (Reported) Morphine Sulfate (Morphine Sulfate) 15 Mg Tablet, 30 MG PO Q4H PRN for SEVERE PAIN (PS 8-10), (Reported) Pantoprazole Sodium (Pantoprazole Sodium) 40 Mg Tablet.dr, 40 MG PO BID PRN for ACID REFLUX, (Reported) FAN SAMUELS MD Apr 14, 2021 13:08
[2021-04-14] MEDS ORDERED: PILL CUTTER 1 EACH XX PRN (13:15)
--- NOTE | 2021-04-14 13:57 | ECGEPIP ---
[facility] - ED Test Date: 2021-04-14 Pat Name: MARLIN PEDRAZA Department: Room: [place] [address] Gender: Female Sports Marketing Coordinator: ekaterina : 1950 Requested By: TAY TREVIZO PA-C Order Number: [id number] Reading MD: Maru Suazo Measurements Intervals [place] Rate: 84 P: 63 OH: 126 QRS: 3 QRSD: 70 T: 51 QT: 370 QTc: 437 Interpretive Statements Normal sinus rhythm NSTTW abnormalities No prior Electronically Signed on 04-14-2021 13:57:44 EDT by Maru Suazo
--- NOTE | 2021-04-14 16:46 | IPNPDOC ---
Text Note Date of Service The patient was seen on 04/14/21. She was admitted yesterday with DVT right LE. She is on heparin drip and will be starting po tomorrow. She hopes to be discharged tomorrow and plans to ask her hospitalist if it will be all right to continue to take hikes. Last week she was seen in my office and we changed her pain medications to MSCOntin 60 mg q 12 hr and prn morphine IR 15 mg tab, 1-2 tab po q4hr prn pain. She reported this change did improve her pain. We also had her resume dexamethasone 1 mg po qam which she reported she took "1 or 2 days" but then forgot to take because she went to [place] to stay with a friend for the week end. I explained that advancing cancer does place people at risk for DVTs and she reported she was unaware of this but was informed by the hospitalist this was the case. She still wants to remain a full code at this time though it appeared last week she had been giving some thought to accepting hospice. Today she was sleeping but easily arousable, alert, oriented. Her respirations were easy and full, she appeared quite comfortable which was congruent with her self report. She stated she had some pain earlier in this admission but once she as placed on MSContin and prn morphine as we agreed upon lat week her pain was much better control. Amina had concerns about her medical MJ certification which she thought would at the end of this month, however, when I checked the [facility] website it appears she does not have an end date on her certificate. She already has a follow up in our clinic. VS,Stephanie, I+O VS, Stephanie, I+O Laboratory Tests 04/13/21 22:07 04/13/21 22:17 04/14/21 10:32 Vital Signs Date Time Temp Pulse Resp B/P (MAP) Pulse Ox O2 Delivery O2 Flow Rate FiO2 04/14/21 15:29 80 15 95 Room Air 04/14/21 15:27 99.6 115/59 (77) I&O- Last 24 Hours up to 6 AM 04/14/21 06:00 Intake Total 0 ml Balance 0 ml Sheridan VILLANUEVA LAP LAYER Apr 14, 2021 16:46
[2021-04-14] MEDS: MORPHINE 30 MG TAB **MSIR PO PRN (20:09)
[2021-04-14] MEDS ORDERED: traZODone 50 MG TAB PO SCH (21:00)
[2021-04-14] MEDS ORDERED: MIRTAZAPINE 15 MG TAB PO SCH (21:00)
[2021-04-14] MEDS ORDERED: CALCIUM CARBONATE 500 MG CHEW U/D PO PRN (21:35)
[2021-04-15] VITALS (10 sets, daily range): BP systolic 107–121; BP diastolic 57–71; O2SAT 91–93
[2021-04-15] MEDS: MORPHINE 30 MG TAB **MSIR PO PRN ×2 (05:07→11:41)
[2021-04-15 05:17] LABS: HEMATOCRIT 28.6 % (36.0-47.0); HEMOGLOBIN 9.4 g/dl (12.0-15.5); MEAN CORPUSCULAR HEMOGLOBIN 33.9 pg (27.0-33.0); MEAN CORPUSCULAR HGB CONC 32.9 g/dl (32.0-36.5); MEAN CORPUSCULAR VOLUME 103.2 fl (80.0-96.0); PLATELET COUNT, AUTOMATED 223 10^3/uL (150-450); RED BLOOD COUNT 2.77 10^6/uL (4.00-5.40); WHITE BLOOD COUNT 6.6 10^3/uL (4.0-10.0)
[2021-04-15 05:41] LABS: BLOOD UREA NITROGEN 16 MG/DL (7-18); CALCIUM LEVEL 8.2 MG/DL (8.8-10.2); CARBON DIOXIDE LEVEL 26 MEQ/L (21-32); CHLORIDE LEVEL 110 MEQ/L (98-107); CREATININE FOR GFR 0.76 MG/DL (0.55-1.30); GLOMERULAR FILTRATION RATE > 60.0 (>39); GLUCOSE, FASTING 113 MG/DL (70-100); MAGNESIUM LEVEL 2.1 MG/DL (1.8-2.4); POTASSIUM SERUM 3.7 MEQ/L (3.5-5.1); SODIUM LEVEL 142 MEQ/L (136-145)
[2021-04-15] MEDS ORDERED: ELIQ5TAB PO (08:01)
--- NOTE | 2021-04-15 08:18 | DS.PDOC ---
Discharge Summary General Date of Admission Apr 13, 2021 at 17:19 Date of Discharge 04/15/2021 Attending Physician: GENESIS DUTTON MD Discharge Summary PROCEDURES PERFORMED DURING STAY: NONE ADMITTING DIAGNOSES: DVT, PE DISCHARGE DIAGNOSES: RLE DVT Bilateral segmental and subsegmental PEs Metastatic pancreatic cancer Chronic cancer related pain Protein calorie malnutrition i/s/o metastatic pancreatic CA GERD Pancreatic insufficiency on creon COMPLICATIONS/CHIEF COMPLAINT: (Dvt) Right Lower Extremity. HISTORY OF PRESENT ILLNESS: 71 y/o W with pancreatic cancer with metastasis to lung and local and distant lymph nodes s/p distal pancreatectomy and several rounds of chemo who presented to the [facility] ED on 04/13 with cc of rle swelling that began about 1 week prior to presentation. Patient states that when she first noticed the swelling, she did not think that much of it as it did not really bother her. Patient states that she simply watched it, however on tuesday 04/10 she noticed it start to become markedly worse. Patient states that she presented to her pcp on 04/13 for evaluation of the swelling, who then ordered an ultrasound which found a large dvt. Patient states that she was surprised as she had no pain in her leg, rather it was simply swollen. Patient reported that she had been traveling lately between [facility] and [place] lately and states that she will often spend many days resting d/t her extreme pain 2/2 her cancer. Her pain at prese ntation was her baseline back and abdominal in origin. She otherwise denied chest pain, cough, hemoptysis, n/v/d/c, fevers, chills, syncope, paresthesias. HOSPITAL COURSE: She had a CTA chest that revealed pulmonary emboli involving some segmental and subsegmental branches of all pulmonary lobes bilaterally without evidence of right heart strain. She was started on a heparin gtt and admitted to medicine. She was seen by vascular surgery that recommended medical management of her VTEs with 24h of heparin gtt and transitioning to a NoAC. She has now been transitioned to eliquis, which she will take 10mg BID for 7d and then begin 5mg BID thereafter. She was seen by her palliative care provider while inpatient reports that her new pain regimen has been working well for her. She asked about activity and I encouraged her to stay as active as her body will tolerate as being sedentary puts her at high risk for VTE developement and extension especially in her hypercoagulable state from metastatic pancreatic cancer. With regard to her cancer, she is not on active treatment any longer and will follow up with oncology per previous plan. She will otherwise be seen by her PCP and palliative care provider within 7d of hospital discharge. DISCHARGE MEDICATIONS: Please see below. ALLERGIES: Please see below. PHYSICAL EXAMINATION ON DISCHARGE: VITAL SIGNS: Please see below. GENERAL APPEARANCE: NAD, thin HEENT: NCAT, EOMI, anicteric, MMM CARDIOVASCULAR:RRR. No murmurs, rubs, gallops LUNGS: CTAB ABDOMEN: soft, diffuse TTP EXTREMITIES: Right lower extremity grossly edematous however nontender, warm, pink, no mottling. NEUROLOGICAL: Speech clear. A+Ox3. Patient moves all four limbs freely LABORATORY DATA: Please see below. IMAGING: CTA chest: PULMONARY ARTERIES: Diameter of the main pulmonary trunk at 2.4 cm is within normal range. There are intraluminal pulmonary arterial filling defects within right upper lobe segmental and subsegmental pulmonary arterial branches, right middle lobe segmental and subsegmental pulmonary arterial branches, right lower lobe segmental and subsegmental pulmonary arterial branches, posterior lingular segmental and subsegmental branches and involvement of the posteromedial segmental and subsegmental branches of the left lower lobe. These findings are consistent with acute pulmonary emboli. There is non visualization of the right lower lobe superior segmental pulmonary arterial from its origin which may be secondary to postsurgical change, pulmonary embolus or extrinsic compression related to malignancy/mass. HEART AND AORTA: Cardiac size is not enlarged. No tricuspid regurgitation into the IVC is seen. Ventricular ratios are maintained. No deviation of the interventricular septum is seen. Evaluation of the aortic root and ascending thoracic aorta is slightly compromised by cardiac motion artifact. No thoracic aortic aneurysm or dissection is seen otherwise. Visualized proximal great vessels within the superior mediastinum are preserved. No visualized upper abdominoaortic aneurysm or dissection is seen. There is retroperitoneal para-aortic soft tissue mass which results in slight luminal irregularity and narrowing of the visualized celiac axis, superior mesenteric artery and visualized left renal artery. MEDIASTINUM: No mediastinal soft tissue gas. No midline shift of structures seen. The visualized trachea is homogeneous. No mediastinal hematoma. Small amount of fluid noted within the pericardial recesses. There is a paratracheal lymph node measuring 6.1 mm in short axis. This is larger than on the prior study but not obviously pathologic. There is an AP window lymph node measuring 10 mm in short axis. This is newly enlarged compared to the prior exam. There is a 10 mm short axis azygoesophageal recess lymph node which is new compared to the prior exam. There is mild right hilar lymphadenopathy with nodes up to 12 mm in short axis. This is new compared to the prior exam. Malignancy cannot be excluded. No hiatal hernia. Mild esophageal wall thickening cannot be excluded on this study. Clinical correlation with any esophageal symptoms. LUNGS: There are innumerable pulmonary emboli seen throughout the lungs bilaterally much worse than on the prior study. Pulmonary nodules appear to have spiculated margins; the largest nodular opacity measuring 2.7 cm in diameter within the right lower lobe and there is also a focal masslike opacity measuring 3.7 x 3 cm within the right lower lobe. A calcific suture line is visible within the right lung. Correlation with past medical history and surgical history is advised. No pneumothorax. Small pleural effusions bilaterally, left slightly greater than right. Bilateral mild interstitial thickening noted. Lymphatic congestion and lymphatic malignancy are possibilities. UPPER ABDOMEN: No free intraperitoneal air is seen within the upper most abdomen. There is scattered free fluid noted. There is elevated mesenteric and omental attenuation which may be secondary to edema, inflammation and or lymph nodes. There is retroperitoneal lobular soft tissue mass measuring 6.4 cm in diameter around the aorta and proximal visceral branches as discussed above. Vascular involvement cannot be excluded. There is hypoenhancement of the visualized left kidney, compared to the right. The significance of this is uncertain. This may be secondary to slight compromise of the left renal artery, other causes of ischemia or dysfunction, however incompletely assessed. Visualized bowel loops within the upper abdomen appear thick walled, slightly indistinct and with suboptimal enhancement. This could be artifactual secondary to lack of distention and early arterial phase of imaging, however gastroenteritis or early ischemic bowel cannot be excluded. Clinical correlation is advised. MSK AND BODY WALL: Right chest wall chest port is noted, the tip of the catheter at the level of the distal SVC. Degenerative changes of the spine and bony thorax are noted. IMPRESSION: There are pulmonary emboli involving some segmental and subsegmental branches of all pulmonary lobes bilaterally. No imaging evidence of right heart strain is seen at the current time. There are innumerable pulmonary nodules and pulmonary parenchymal masses which are greater and enlarged compared to the prior study, worrisome for worsening metastatic disease. Lymphangitic involvement may also be a possibility. There is new mediastinal and hilar lymph node enlargement, likely secondary to malignant involvement. Incompletely imaged para-aortic retroperitoneal mass is much larger than on the prior study with surrounding of some visceral branches with irregularity of luminal flow suggesting early vascular involvement and or partial vascular compromise. There is hypo enhancement of the left kidney which may be secondary to vascular compromise as discussed above. There is suboptimal enhancement of visualized bowel loops which could be artifactual but early ischemic change cannot be excluded. Other findings discussed above in detail. PROGNOSIS: Fair to poor given metastatic pancreatic cancer not on treatment ACTIVITY: As tolerated DIET: Regular DISCHARGE PLAN: Home with eliquis and close PCP and palliative follow up DISPOSITION: Home DISCHARGE INSTRUCTIONS: Home with eliquis and close PCP and palliative follow up ITEMS TO FOLLOWUP ON ON OUTPATIENT: DVT/PE Anemia follow up now that she has started a blood thinner Pancreatic cancer Pain management DISCHARGE CONDITION: Stable. TIME SPENT ON DISCHARGE: 33 minutes. Vital Signs/I&Os Vital Signs Date Time Temp Pulse Resp B/P (MAP) Pulse Ox O2 Delivery O2 Flow Rate FiO2 04/15/21 07:31 99.5 63 13 114/64 (81) 90 Room Air I&O- Last 24 Hours up to 6 AM 04/15/21 06:00 Intake Total 1290 ml Output Total 1200 ml Balance 90 ml Laboratory Data Labs 24H Laboratory Tests 2 04/14/21 09:41: Activated Partial Thromboplast Time 99.6H 04/14/21 10:32: Nucleated Red Blood Cells % (auto) 0.0 04/14/21 11:18: Lab Scanned Report Miscellaneous Lab 04/14/21 15:41: Activated Partial Thromboplast Time 91.3H 04/15/21 04:49: Nucleated Red Blood Cells % (auto) 0.0, Activated Partial Thromboplast Time 112.0H, Anion Gap 6L, Glomerular Filtration Rate > 60.0, Calcium Level 8.2L, Magnesium Level 2.1 CBC/BMP Laboratory Tests 04/14/21 10:32 04/15/21 04:49 Microbiology Microbiology 04/15/21 Stool Occult Blood (LADI) - Final, Complete Discharge Medications Scheduled Apixaban (Eliquis) 5 Mg Tablet, 5 MG PO ASDIRECTED 10mg BID for 7d, then 5mg BID thereafter. Dexamethasone (Dexamethasone) 1 Mg Tablet, 1 MG PO DAILY, (Reported) Lipase/Protease/Amylase (Creon Dr 36,000 Units Capsule) 1 Each Capsule.dr, 2 CAP PO WM, (Reported) Lipase/Protease/Amylase (Creon Dr 36,000 Units Capsule) 1 Each Capsule.dr, 1 CAP PO ASDIRECTED, (Reported) WITH SNACKS Mirtazapine (Remeron) 30 Mg Tablet, 30 MG PO QHS, (Reported) Morphine Sulfate (Morphine Sulfate Cr) 60 Mg Tablet.er, 60 MG PO BID, (Reported) Trazodone HCl (Trazodone HCl) 50 Mg Tablet, 50 MG PO QHS, (Reported) Scheduled PRN Acetaminophen (Tylenol Extra Strength) 500 Mg Tablet, 500 MG PO Q4H PRN for MILD PAIN (PS 1-4), (Reported) Diphenoxylate HCl/Atropine (Lomotil 2.5-0.025 mg Tablet) 1 Each Tablet, 1 TAB PO QID PRN for DIARRHEA, (Reported) Morphine Sulfate (Morphine Sulfate) 15 Mg Tablet, 15 MG PO Q4H PRN for MODERATE PAIN (PS 5-7), (Reported) Morphine Sulfate (Morphine Sulfate) 15 Mg Tablet, 30 MG PO Q4H PRN for SEVERE PAIN (PS 8-10), (Reported) Pantoprazole Sodium (Pantoprazole Sodium) 40 Mg Tablet.dr, 40 MG PO BID PRN for ACID REFLUX, (Reported) Allergies Coded Allergies: No Known Allergies (Unverified , 12/21/16) GENESIS DUTTON MD Apr 15, 2021 08:18
[2021-04-15] MEDS: DOCUSATE SODIUM 100MG CAPSULE PO SCH (09:00)
[2021-04-15] MEDS: MORPHINE 30 MG SA TAB PO SCH (09:14)
[2021-04-15] MEDS: CREON-24 CAPSULE PO SCH ×2 (09:15→12:30)
[2021-04-15] MEDS: ACETAMINOPHEN 500 MG TAB PO PRN (11:40)
[2021-04-15] MEDS ORDERED: APIXABAN 5 MG TAB (ELIQUIS) PO SCH (12:00)
[2021-04-16] MEDS ORDERED: FLUBLOK(EGG FREE)(QUAD)INFLUENZA VACC 0.5ML SYRINGE 18YRS & OLDER IM ONE (09:00)
== END 2021-04-15 15:07 | disposition home or self-care (01) | DRG 299 ==
LOC: M ED 17:18 → M ED INP 17:19 → ENRESERV 04-14 01:58 → M PCU 04-14 02:30
PROVIDERS: ADMIT Internal Medicine; ATTEND Internal Medicine
DX: I82.431 Acute embolism and thrombosis of right popliteal vein (principal); E43 Unspecified severe protein-calorie malnutrition; I26.99 Other pulmonary embolism without acute cor pulmonale; C78.01 Secondary malignant neoplasm of right lung; C25.9 Malignant neoplasm of pancreas, unspecified; C79.89 Secondary malignant neoplasm of other specified sites; C79.51 Secondary malignant neoplasm of bone; I82.811 Embolism and thrombosis of superficial veins of right lower extremity; G89.3 Neoplasm related pain (acute) (chronic); I82.411 Acute embolism and thrombosis of right femoral vein; G47.00 Insomnia, unspecified; K21.9 Gastro-esophageal reflux disease without esophagitis; Z20.822 Contact with and (suspected) exposure to COVID-19; Z79.891 Long term (current) use of opiate analgesic; Z79.899 Other long term (current) drug therapy

== ENCOUNTER → 2021-04-13 | Outpatient (CLI) | payer MEDICARE, OTHER | LOC: M RAD 16:00 | PROVIDERS: ATTEND Physician Assistant Medical | DX: I82.811 Embolism and thrombosis of superficial veins of right lower extremity (principal); I82.431 Acute embolism and thrombosis of right popliteal vein ==

== ENCOUNTER → 2021-04-13 | Outpatient (REF) | payer MEDICARE, OTHER | LOC: M LAB REF 16:12 | PROVIDERS: ATTEND Physician Assistant Medical | DX: R22.41 Localized swelling, mass and lump, right lower limb (principal); R06.1 Stridor ==

== ENCOUNTER → 2021-05-13 | Outpatient (CLI) | payer MEDICARE, OTHER ==
[~2021-05-13] MED LIST changes: +ACET-897 PO; +DEXA1TA PO; +ELIQ5TAB PO; +ISOVUE-370 76% 100ML VIAL As Ordered ONE; +LOMO2.5T PO; +MIRT-60 PO; +MORP15TA2 PO; +MORP1TAB21 PO; +TRAZ-186 PO
--- NOTE | 2021-05-13 16:08 | REP ---
INDICATION: ACUTE EMBOLISM AND THROMBOSIS UNSP DEEP VEINS OF R LOW EXT COMPARISON: 04/13/2021. TECHNIQUE: Real time compression and duplex Doppler interrogation of the right lower extremity deep venous system is performed, including the left common femoral vein.Compression of the right peroneal and posterior tibial veins is performed. FINDINGS: The right common femoral, superficial femoral and popliteal veins are fully compressible with transducer pressure and demonstrate normal spontaneous and phasic flow, without evidence of deep venous thrombosis.The left common femoral vein demonstrates no thrombus.The right peroneal and posterior tibial veins could not be visualized due to edema. IMPRESSION: No evidence of deep venous thrombosis of the right lower extremity femoral popliteal venous system. <Electronically signed by Redd Perez > 05/13/21 [id number]
--- NOTE | 2021-05-13 17:43 | REP ---
INDICATION: PANCREATIC CA W/ MARTHA UMBILICAL PAIN. COMPARISON: None. TECHNIQUE: CT abdomen and pelvis performed without IV contrast. CT abdomen and pelvis performed with IV contrast as well, following intravenous administration of 100 cc of Isovue 370. Sagittal, coronal and 3D MIP reconstruction images are performed. FINDINGS: Lung bases: Multiple innumerable pulmonary nodules are present in the visualized lung bases bilaterally, grossly similar to the prior study. There new moderate bilateral pleural effusions.. Liver: There is a new mottled peripheral enhancement in the right and left lobes of the liver on the arterial and venous phases of postcontrast imaging, likely due to severe narrowing of the main hepatic artery, with preferential portal venous flow to the liver. There is new enhancement in the left lobe of the liver with central fluid density and probable necrosis. This measures approximately 3.6 cm in diameter. This may represent a new metastatic lesion. Several smaller nodular areas of enhancement are seen throughout the liver, which may related to the differential perfusion of the liver, but small metastases cannot be excluded. Gallbladder: Unremarkable. Spleen: Splenectomy. Adrenals: There is invasion of the left adrenal gland by an adjacent retroperitoneal mass. Pancreas: There has reportedly been a prior distal pancreatectomy. Portions of the pancreatic head are visualized. Within the lateral aspect of the pancreatic head there is an oval soft tissue mass which measures 2.1 x 1.3 cm. There is a large infiltrating retroperitoneal mass at this level which is similar in size compared to the prior CT of 04/13/2021. This encases the abdominal aorta. There is an oval filling defect in the inferior vena cava at this level compatible with tumor thrombus. This measures approximately 2.6 x 1.7 cm and significantly narrows the inferior vena cava at this level. There is encasement and severe narrowing of the celiac artery and its branches. There is encasement and severe stenosis of the proximal superior mesenteric artery and bilateral renal arteries. The central superior mesenteric vein appears occluded. Multiple collateral veins reconstitute the central aspect of the main portal vein. Kidneys: No renal mass or hydronephrosis is seen. Small and large bowel: Unremarkable. Free fluid: There is moderate diffuse abdominal and pelvic ascites.. Adenopathy: A cluster of mildly enlarged lymph nodes are visualized along the left internal iliac vessels.. Appendix: Not inflamed. Osseous structures: Sclerotic densities are now visualized in the T9, T12, L1 and L4 vertebral bodies suggesting sclerotic metastases.. Pelvis: Prior hysterectomy. There is an ill-defined soft tissue mass 4.7 x 2.1 cm surrounding the right external iliac vessels along the iliacus muscle. There appears to be a filling defect in the adjacent right external iliac vein suggesting thrombus in that vein.. IMPRESSION: Multiple innumerable pulmonary nodules present in the visualized lung bases similar to the prior study consistent with extensive metastases. New moderate bilateral pleural effusions. Peripheral mottled enhancement of the liver likely due to severe narrowing of the main hepatic artery. There are some nodular areas of enhancement which are new as discussed in detail above, which may represent new liver metastases. Oval soft tissue mass lateral aspect of pancreatic head 2.1 x 1.3 cm. A large retroperitoneal mass at the level of the pancreas encases the abdominal aorta. There is invasion of the left adrenal gland. The adjacent inferior vena cava demonstrates apparent tumor thrombus with significant narrowing of the inferior vena cava at that level. There is encasement and severe narrowing/stenosis of the celiac artery and its branches, the superior mesenteric artery and bilateral renal arteries. The central aspect of the superior mesenteric vein is occluded. Multiple collateral veins reconstitute the central aspect of the main portal vein. Moderate diffuse abdominal and pelvic ascites. There appears to be a cluster of mildly enlarged lymph nodes along the left internal iliac vessels. There is a vague soft tissue mass surrounding the right external iliac vessels with suspected focal thrombus in that portion of the right external iliac vein. New sclerotic densities in the T9, T12, L1 and L4 vertebral bodies there are compatible with metastatic lesions. <Electronically signed by Redd Perez > 05/13/21 [id number]
== END ==
LOC: M RAD 15:06
PROVIDERS: ATTEND Physician Assistant Medical
DX: R10.815 Periumbilic abdominal tenderness (principal); C25.3 Malignant neoplasm of pancreatic duct
CPT/HCPCS: 74178; 93971; J1642; Q9967

== ENCOUNTER → 2021-05-25 | Outpatient (REF) | payer MEDICARE, OTHER ==
[~2021-05-25] MED LIST changes: +ENOX40IN3 SQ; -ISOVUE-370 76% 100ML VIAL As Ordered ONE
== END ==
LOC: M LAB REF 16:21
PROVIDERS: ATTEND Physician Assistant Medical
DX: D64.9 Anemia, unspecified (principal)

== ENCOUNTER 2021-05-26 10:25 | Outpatient (CLI) | payer MEDICARE, OTHER ==
[2021-05-26] VITALS (10 sets, daily range): BP systolic 101–120; BP diastolic 52–67
[~2021-05-26 10:25] MED LIST changes: +SODIUM CHLORIDE 0.9% INJ 10 ML SYR IV SCH
[2021-05-26] MEDS ORDERED: SODIUM CHLORIDE 0.9% INJ 10 ML SYR IV PRN (10:30)
== END 2021-05-26 15:45 | disposition home or self-care (01) ==
LOC: M INFU 10:25
PROVIDERS: ATTEND Physician Assistant Medical
DX: D64.9 Anemia, unspecified (principal)
CPT/HCPCS: 36430; 96523; J1642; P9016